=== PATIENT | female | born 1955 ===

== ENCOUNTER 2018-01-08 10:39 | Emergency (ER) | payer OTHER ==
[~2018-01-08] VITALS: Ht 149.9 cm; Wt 70.8 kg
[~2018-01-08 10:39] MED LIST: DIOVAN160 M1 PO; GLIMEPIRIDE4 MG PO; NEURONTIN800 MG PO; SYNTTHROID PO
[2018-01-08] MEDS ORDERED: DIOVAN160 M1 PO (11:05)
[2018-01-08] MEDS ORDERED: GLIMEPIRIDE4 MG PO (11:05)
[2018-01-08] MEDS ORDERED: TENORMIN50 MG PO (11:05)
[2018-01-08] MEDS ORDERED: AMLODIPINE BESY10 MG (11:05)
[2018-01-08] MEDS ORDERED: NEURONTIN800 MG PO (11:06)
[2018-01-08] MEDS ORDERED: SYNTHROID50 MCG PO (11:06)
== END 2018-01-08 22:55 | disposition home or self-care (01) ==
LOC: ER 10:39
DX: N30.80 Other cystitis without hematuria (principal); N39.0 Urinary tract infection, site not specified

== ENCOUNTER 2018-02-25 10:15 | Inpatient (IN) | payer OTHER ==
[~2018-02-25] VITALS: Ht 149.9 cm; Wt 69.9 kg
[~2018-02-25 10:15] MED LIST changes: +AMLODIPINE BESY10 MG; +SYNTHROID50 MCG PO; +TENORMIN50 MG PO
== END 2018-03-01 10:30 | disposition home or self-care (01) | DRG 737 ==
LOC: OB/GYN 02-27 05:18 → O/R 02-27 05:18 → RECOVERY 02-27 10:15 → OB/GYN 02-27 16:50 → RECOVERY 02-27 20:45 → OB/GYN 03-01 10:30
PROVIDERS: Obstetrics & Gynecology Gynecologic Oncology
PROC: 0UT70ZZ Resection of Bilateral Fallopian Tubes, Open Approach (ICD-10-PCS; 2018-02-27)
PROC: 0DBW0ZZ Excision of Peritoneum, Open Approach (ICD-10-PCS; 2018-02-27)
PROC: 3E1M38X Irrigation of Peritoneal Cavity using Irrigating Substance, Percutaneous Approach, Diagnostic (ICD-10-PCS; 2018-02-27)
PROC: 0UT20ZZ Resection of Bilateral Ovaries, Open Approach (ICD-10-PCS; principal; 2018-02-27 20:45)
DX: C56.2 Malignant neoplasm of left ovary (principal); C18.7 Malignant neoplasm of sigmoid colon; C78.6 Secondary malignant neoplasm of retroperitoneum and peritoneum; C78.5 Secondary malignant neoplasm of large intestine and rectum; C78.4 Secondary malignant neoplasm of small intestine; C79.62 Secondary malignant neoplasm of left ovary

== ENCOUNTER 2019-06-12 15:48 | Emergency (ER) | payer OTHER ==
[~2019-06-12] VITALS: Ht 149.9 cm; Wt 70.3 kg
== END 2019-06-12 21:30 | disposition home or self-care (01) ==
LOC: ER 15:48
DX: R10.84 Generalized abdominal pain (principal)

== ENCOUNTER 2019-07-06 11:06 | Inpatient (IN) | payer OTHER ==
[~2019-07-06] VITALS: Ht 149.9 cm; Wt 69.9 kg
[2019-07-10] MEDS ORDERED: IRBESARTAN150 MG PO (14:03)
[2019-07-18] MEDS ORDERED: TRAMADOL HCL50 MG PO (07:11)
[2019-07-18] MEDS ORDERED: TYLENOL EXTRA500 MG PO (07:11)
[2019-07-18] MEDS ORDERED: MIRALAX17 GM PO (07:11)
== END 2019-07-18 09:41 | disposition home or self-care (01) | DRG 354 ==
LOC: SURG 07-10 12:00 → O/R 07-16 11:19 → SURH 07-16 11:19 → SURG 07-16 12:00 → SURH 07-18 09:41
PROVIDERS: ADMIT Surgery
PROC: 0KUL07Z Supplement Left Abdomen Muscle with Autologous Tissue Substitute, Open Approach (ICD-10-PCS; 2019-07-16)
PROC: 0KUK07Z Supplement Right Abdomen Muscle with Autologous Tissue Substitute, Open Approach (ICD-10-PCS; 2019-07-16)
PROC: 0WUF4JZ Supplement Abdominal Wall with Synthetic Substitute, Percutaneous Endoscopic Approach (ICD-10-PCS; principal; 2019-07-16 07:00)
DX: K43.0 Incisional hernia with obstruction, without gangrene (principal); K57.32 Diverticulitis of large intestine without perforation or abscess without bleeding; K42.0 Umbilical hernia with obstruction, without gangrene; I10 Essential (primary) hypertension; E11.9 Type 2 diabetes mellitus without complications; E03.8 Other specified hypothyroidism; R53.1 Weakness; Z85.038 Personal history of other malignant neoplasm of large intestine; Z08 Encounter for follow-up examination after completed treatment for malignant neoplasm; Z79.4 Long term (current) use of insulin

== ENCOUNTER 2020-02-05 13:35 | Emergency (ER) | payer OTHER ==
[~2020-02-05] VITALS: Ht 149.9 cm; Wt 68.0 kg
[~2020-02-05 13:35] MED LIST changes: +IRBESARTAN150 MG PO; +MIRALAX17 GM PO; +TRAMADOL HCL50 MG PO; +TYLENOL EXTRA500 MG PO
[2020-02-05] MEDS ORDERED: MIRALAX510 GM PO (18:21)
== END 2020-02-05 18:29 | disposition home or self-care (01) ==
LOC: ER 13:35
DX: K59.09 Other constipation (principal); R10.32 Left lower quadrant pain

== ENCOUNTER 2020-04-11 09:40 | Emergency (ER) | payer OTHER ==
[~2020-04-11] VITALS: Ht 149.9 cm; Wt 68.9 kg
[~2020-04-11 09:40] MED LIST changes: +MIRALAX510 GM PO
== END 2020-04-11 13:55 | disposition home or self-care (01) ==
LOC: ER 09:40
DX: M25.511 Pain in right shoulder (principal)

== ENCOUNTER 2020-09-08 07:00 | Inpatient (IN) | payer OTHER ==
[~2020-09-08] VITALS: Ht 139.7 cm; Wt 68.0 kg
[2020-09-08] MEDS ORDERED: AVAPRO150 MG PO (09:45)
== END 2020-09-20 14:02 | disposition home or self-care (01) | DRG 336 ==
LOC: O/R 09-15 06:04 → SURG 09-15 06:04 → SURH 09-15 07:00 → OB/GYN 09-15 17:39 → SURG 09-15 21:00
PROVIDERS: Surgery; ADMIT Surgery; ATTEND Surgery
PROC: 0DTJ0ZZ Resection of Appendix, Open Approach (ICD-10-PCS; 2020-09-15)
PROC: 0WBF0ZZ Excision of Abdominal Wall, Open Approach (ICD-10-PCS; 2020-09-15)
PROC: 0WUF0JZ Supplement Abdominal Wall with Synthetic Substitute, Open Approach (ICD-10-PCS; 2020-09-15)
PROC: 0DNW0ZZ Release Peritoneum, Open Approach (ICD-10-PCS; principal; 2020-09-15 07:00)
PROC: 0DBU0ZZ Excision of Omentum, Open Approach (ICD-10-PCS; 2020-09-15 07:00)
PROC: 30233N1 Transfusion of Nonautologous Red Blood Cells into Peripheral Vein, Percutaneous Approach (ICD-10-PCS; 2020-09-19)
DX: C78.6 Secondary malignant neoplasm of retroperitoneum and peritoneum (principal); C18.9 Malignant neoplasm of colon, unspecified; K42.0 Umbilical hernia with obstruction, without gangrene; K43.0 Incisional hernia with obstruction, without gangrene; K66.0 Peritoneal adhesions (postprocedural) (postinfection); K43.2 Incisional hernia without obstruction or gangrene; D64.9 Anemia, unspecified

== ENCOUNTER 2020-10-07 13:00 | Inpatient (IN) | payer OTHER ==
[~2020-10-07] VITALS: Ht 149.9 cm; Wt 64.4 kg
[~2020-10-07 13:00] MED LIST changes: +AVAPRO150 MG PO
[2020-10-10] MEDS ORDERED: NEURONTIN300 MG PO (05:01)
[2020-10-10] MEDS ORDERED: TYLENOL ARTHRI650 MG PO (05:01)
[2020-10-10] MEDS ORDERED: ULTRAM50 MG PO (05:01)
[2020-10-10] MEDS ORDERED: TRAMADOL HCL50 MG PO (05:05)
[2020-10-10] MEDS ORDERED: GABAPENTIN300 MG PO (05:05)
[2020-10-10] MEDS ORDERED: TYLenol Extra Streng PO (05:05)
== END 2020-10-10 16:22 | disposition home or self-care (01) | DRG 858 ==
LOC: ER 13:00 → SURH 15:39
PROVIDERS: ADMIT Surgery; ATTEND Surgery
PROC: 3E10X8Z Irrigation of Skin and Mucous Membranes using Irrigating Substance (ICD-10-PCS; 2020-10-07)
PROC: 02HV33Z Insertion of Infusion Device into Superior Vena Cava, Percutaneous Approach (ICD-10-PCS; 2020-10-07)
PROC: 0JB80ZZ Excision of Abdomen Subcutaneous Tissue and Fascia, Open Approach (ICD-10-PCS; principal; 2020-10-07 20:00)
DX: T81.41XA Infection following a procedure, superficial incisional surgical site, initial encounter (principal); Z20.828 Contact with and (suspected) exposure to other viral communicable diseases

== ENCOUNTER 2020-10-20 08:28 | Emergency (ER) | payer OTHER ==
[~2020-10-20] VITALS: Ht 139.7 cm; Wt 64.0 kg
[~2020-10-20 08:28] MED LIST changes: +GABAPENTIN300 MG PO; +NEURONTIN300 MG PO; +TYLENOL ARTHRI650 MG PO; +TYLenol Extra Streng PO; +ULTRAM50 MG PO
== END 2020-10-20 18:28 | disposition home or self-care (01) ==
LOC: ER 08:28
DX: E11.649 Type 2 diabetes mellitus with hypoglycemia without coma (principal); R41.0 Disorientation, unspecified; Z79.84 Long term (current) use of oral hypoglycemic drugs; Z03.818 Encounter for observation for suspected exposure to other biological agents ruled out

== ENCOUNTER 2021-04-02 07:48 | Emergency (ER) | payer OTHER ==
[~2021-04-02] VITALS: Ht 149.9 cm; Wt 64.4 kg
== END 2021-04-02 10:11 | disposition home or self-care (01) ==
LOC: ER 07:48
DX: M62.830 Muscle spasm of back (principal)

== ENCOUNTER 2021-04-18 12:01 | Emergency (ER) | payer OTHER ==
[~2021-04-18] VITALS: Ht 157.5 cm; Wt 66.7 kg
[2021-04-18] MEDS ORDERED: CIPRO500 MG PO (15:53)
== END 2021-04-18 16:01 | disposition home or self-care (01) ==
LOC: ER 12:01
DX: R39.198 Other difficulties with micturition (principal)

== ENCOUNTER 2021-06-27 01:50 | Emergency (ER) | payer OTHER ==
[~2021-06-27] VITALS: Ht 149.9 cm; Wt 64.0 kg
[~2021-06-27 01:50] MED LIST changes: +CIPRO500 MG PO
[2021-06-27] MEDS ORDERED: NORFLEX100MG PO (08:54)
[2021-06-27] MEDS ORDERED: ACETAMINOPHEN650 M2 PO (08:54)
[2021-06-27] MEDS ORDERED: PEPCID AC20 MG PO (08:54)
[2021-06-27] MEDS ORDERED: SURFAK240 M1 PO (08:54)
[2021-06-27] MEDS ORDERED: CIPRO500 MG PO (08:56)
== END 2021-06-27 09:25 | disposition home or self-care (01) ==
LOC: ER 01:50
DX: K59.09 Other constipation (principal); R10.84 Generalized abdominal pain; K62.89 Other specified diseases of anus and rectum

== ENCOUNTER 2021-10-19 23:44 | Emergency (ER) | payer OTHER ==
[~2021-10-19] VITALS: Ht 149.9 cm; Wt 64.0 kg
[~2021-10-19 23:44] MED LIST changes: +ACETAMINOPHEN650 M2 PO; +NORFLEX100MG PO; +PEPCID AC20 MG PO; +SURFAK240 M1 PO
[2021-10-19] MEDS ORDERED: SYNTHROID75 MCG (23:53)
[2021-10-20] MEDS ORDERED: LEVSIN/SL0.125 MG SL (06:19)
[2021-10-20] MEDS ORDERED: ZOFRAN8 MG PO (06:19)
[2021-10-20] MEDS ORDERED: PEPCID40 MG PO (06:19)
[2021-10-20] MEDS ORDERED: CIPRO500 MG PO (06:19)
[2021-10-20] MEDS ORDERED: TORADOL60 MG IM (06:20)
== END 2021-10-20 08:18 | disposition home or self-care (01) ==
LOC: ER 23:44
DX: R10.84 Generalized abdominal pain (principal)

== ENCOUNTER 2021-10-23 17:29 | Emergency (ER) | payer OTHER ==
[~2021-10-23] VITALS: Ht 144.8 cm; Wt 63.5 kg
[~2021-10-23 17:29] MED LIST changes: +LEVSIN/SL0.125 MG SL; +PEPCID40 MG PO; +SYNTHROID75 MCG; +TORADOL60 MG IM; +ZOFRAN8 MG PO
== END 2021-10-23 21:46 | disposition home or self-care (01) ==
LOC: ER 17:29
DX: K52.89 Other specified noninfective gastroenteritis and colitis (principal)

== ENCOUNTER → 2021-11-27 08:00 | Outpatient (CLI) | payer OTHER | END | disposition home or self-care (01) | LOC: LAB 08:00 → ADM 13:00 → EDSTATUS 11-29 13:00 → AMB-ENDOS 11-29 13:00 | PROVIDERS: ATTEND Colon & Rectal Surgery | DX: C18.7 Malignant neoplasm of sigmoid colon (principal); U07.1 COVID-19; Z12.11 Encounter for screening for malignant neoplasm of colon; Z12.12 Encounter for screening for malignant neoplasm of rectum; Z11.59 Encounter for screening for other viral diseases ==

== ENCOUNTER 2021-11-28 19:00 | Emergency (ER) | payer OTHER ==
[~2021-11-28] VITALS: Ht 144.8 cm; Wt 62.6 kg
== END 2021-11-29 01:00 | disposition home or self-care (01) ==
LOC: ER 19:00
DX: R10.84 Generalized abdominal pain (principal)

== ENCOUNTER 2022-01-31 06:33 | Day surgery (SDC) | payer OTHER | END 2022-01-31 13:30 | disposition home or self-care (01) | LOC: AMB-ENDOS 06:33 | PROVIDERS: ATTEND Colon & Rectal Surgery | DX: C18.6 Malignant neoplasm of descending colon (principal); K62.4 Stenosis of anus and rectum; Z12.11 Encounter for screening for malignant neoplasm of colon; Z20.822 Contact with and (suspected) exposure to COVID-19 ==

== ENCOUNTER 2022-03-14 08:17 | Emergency (ER) | payer OTHER ==
[~2022-03-14] VITALS: Ht 147.3 cm; Wt 63.5 kg
[2022-03-14] MEDS ORDERED: ULTRAM50 MG PO (12:26)
[2022-03-14] MEDS ORDERED: VALTREX1000 MG PO (12:26)
== END 2022-03-14 12:50 | disposition home or self-care (01) ==
LOC: ER 08:17
DX: R21 Rash and other nonspecific skin eruption (principal); I10 Essential (primary) hypertension; Z85.038 Personal history of other malignant neoplasm of large intestine; Z85.43 Personal history of malignant neoplasm of ovary

== ENCOUNTER 2022-04-23 08:31 | Emergency (ER) | payer OTHER ==
[~2022-04-23] VITALS: Ht 147.3 cm; Wt 58.5 kg
[~2022-04-23 08:31] MED LIST changes: +VALTREX1000 MG PO
[2022-04-23] MEDS ORDERED: GLIPIZIDE XL2.5 MG (09:01)
== END 2022-04-23 15:47 | disposition home or self-care (01) ==
LOC: ER 08:31
DX: C44.509 Unspecified malignant neoplasm of skin of other part of trunk (principal); E11.9 Type 2 diabetes mellitus without complications; Z79.84 Long term (current) use of oral hypoglycemic drugs; I10 Essential (primary) hypertension; Z88.8 Allergy status to other drugs, medicaments and biological substances; Z20.822 Contact with and (suspected) exposure to COVID-19

== ENCOUNTER 2022-08-26 06:33 | Emergency (ER) | payer OTHER ==
[~2022-08-26] VITALS: Ht 144.8 cm; Wt 58.5 kg
[~2022-08-26 06:33] MED LIST changes: +GLIPIZIDE XL2.5 MG
== END 2022-08-26 14:40 | disposition home or self-care (01) ==
LOC: ER 06:33
DX: K52.9 Noninfective gastroenteritis and colitis, unspecified (principal); K80.10 Calculus of gallbladder with chronic cholecystitis without obstruction; J90 Pleural effusion, not elsewhere classified; N13.30 Unspecified hydronephrosis; N28.1 Cyst of kidney, acquired; Z88.8 Allergy status to other drugs, medicaments and biological substances; Z85.038 Personal history of other malignant neoplasm of large intestine; E11.9 Type 2 diabetes mellitus without complications; Z79.84 Long term (current) use of oral hypoglycemic drugs; I10 Essential (primary) hypertension; E03.9 Hypothyroidism, unspecified

== ENCOUNTER → 2022-10-21 | Emergency (ER) | payer OTHER ==
[~2022-10-21] VITALS: Ht 157.5 cm; Wt 54.4 kg
== END | disposition expired ==
LOC: ER 11:54
DX: R10.84 Generalized abdominal pain (principal); R11.2 Nausea with vomiting, unspecified; D01.0 Carcinoma in situ of colon; I46.9 Cardiac arrest, cause unspecified; N17.9 Acute kidney failure, unspecified; N73.9 Female pelvic inflammatory disease, unspecified; K52.9 Noninfective gastroenteritis and colitis, unspecified; N13.30 Unspecified hydronephrosis; J90 Pleural effusion, not elsewhere classified